=== PATIENT | female | born 1975 | race African-American/Black ===

== ENCOUNTER 2017-09-22 14:46 | Emergency (ER) | payer MEDICARE, MEDICAID ==
[~2017-09-22] VITALS: Ht 170.2 cm; Wt 102.0 kg
[2017-09-22] MEDS ORDERED: SODIUM CHLORIDE 0.9% 1000ML BAG (SEPSIS BOLUS) IV ONE (15:30)
[2017-09-22 15:55] LABS: BASOPHILS % 0.3 % (0.0-2.0); CHLORIDE 105 mEq/L (98-107); EOSINOPHILS % 1.6 % (0.0-5.0); HEMATOCRIT. 33.3 % (36.0-48.0); LYMPHOCYTES % 16.7 % (20.0-50.0); MEAN CORPUSCULAR HEMOGLOBIN 28.8 pg (28.0-32.0); MEAN CORPUSCULAR VOLUME 87.2 fL (81.0-99.0); MEAN PLATELET VOLUME 7.7 fl (7.4-10.4); MONOCYTES % 5.4 % (2.0-8.0); PLATELET 276 x1000/uL (130-400); RED BLOOD CELL COUNT 3.82 mill/uL (4.2-5.4); RED CELL DISTRIBUTION WIDTH 15.2 % (11.6-14.6)
[2017-09-22] MEDS ORDERED: SODIUM CHLORIDE 0.9% 1,000 ML IV ONE (16:00)
[2017-09-22 16:05] LABS: CARBON DIOXIDE 30 mEq/L (21-32)
[2017-09-22] MEDS ORDERED: POTASSIUM CHLORIDE 20MEQ TABLET SR PO ONE (18:00)
[2017-09-22 20:41] LABS: CLARITY URINE TURBID (CLEAR); COLOR URINE DARK YELLOW (YELLOW); KETONES URINE TRACE (NEGATIVE); LEUKOCYTE ESTERASE URINE 3+ (NEGATIVE); NITRITE URINE NEGATIVE (NEGATIVE); OCCULT BLOOD URINE 2+ (NEGATIVE); PH URINE 5.5 (4.5-8.0); PROTEIN URINE 2+ (NEGATIVE); SPECIFIC GRAVITY URINE 1.033 (1.005-1.030)
[2017-09-22 21:22] VITALS: BP 99/64
== END 2017-09-23 03:12 | disposition home or self-care (01) ==
LOC: ER 15:24
DX: T85.898A Other specified complication of other internal prosthetic devices, implants and grafts, initial encounter (principal); E87.6 Hypokalemia; J45.909 Unspecified asthma, uncomplicated; Y83.8 Other surgical procedures as the cause of abnormal reaction of the patient, or of later complication, without mention of misadventure at the time of the procedure; Y92.018 Other place in single-family (private) house as the place of occurrence of the external cause
CPT/HCPCS: 36415; 74176; 80053; 81001; 81025; 83605; 85025; 87040; 87086; 96360; 96361; 99285; J7030

== ENCOUNTER 2017-09-24 11:14 | Emergency (ER) | payer MEDICARE, MEDICAID ==
[~2017-09-24] VITALS: Ht 182.9 cm; Wt 130.0 kg
[2017-09-24 12:08] LABS: BASOPHILS % 0.2 % (0.0-2.0); EOSINOPHILS % 2.3 % (0.0-5.0); HEMATOCRIT. 33.5 % (36.0-48.0); HEMOGLOBIN. 10.9 g/dL (12.0-16.0); LYMPHOCYTES % 17.5 % (20.0-50.0); MEAN CORPUSCULAR HEMOGLOBIN 28.5 pg (28.0-32.0); MEAN CORPUSCULAR VOLUME 87.3 fL (81.0-99.0); MEAN PLATELET VOLUME 7.8 fl (7.4-10.4); MONOCYTES % 5.4 % (2.0-8.0); NEUTROPHILS % 74.6 % (40.0-76.0); PLATELET 300 x1000/uL (130-400); RED BLOOD CELL COUNT 3.84 mill/uL (4.2-5.4); RED CELL DISTRIBUTION WIDTH 14.9 % (11.6-14.6)
[2017-09-24 12:10] LABS: CARBON DIOXIDE 32 mEq/L (21-32); CHLORIDE 103 mEq/L (98-107)
[2017-09-24 12:19] LABS: INR 1.1; PROTHROMBIN TIME 11.2 sec (9.4-11.6)
[2017-09-24] MEDS ORDERED: POTASSIUM CHLORIDE 20MEQ TABLET SR PO ONE (13:15)
[2017-09-24 17:55] VITALS: BP 112/66
[2017-09-24] MEDS ORDERED: ACETAMINOPHEN 325MG TABLET PO ONE (18:00)
== END 2017-09-24 18:10 | disposition home or self-care (01) ==
LOC: ER 11:32
DX: T81.31XA Disruption of external operation (surgical) wound, not elsewhere classified, initial encounter (principal); J45.909 Unspecified asthma, uncomplicated; Y83.8 Other surgical procedures as the cause of abnormal reaction of the patient, or of later complication, without mention of misadventure at the time of the procedure; Y92.018 Other place in single-family (private) house as the place of occurrence of the external cause
CPT/HCPCS: 36415; 80053; 85025; 85610; 99284

== ENCOUNTER 2018-06-24 20:07 | Emergency (ER) | payer MEDICARE, MEDICAID ==
[~2018-06-24] VITALS: Ht 188 cm; Wt 113.6 kg
[2018-06-24] MEDS ORDERED: IBUPROFEN 800MG TABLET PO ONE (22:30)
[2018-06-24 22:39] VITALS: BP 142/102
== END 2018-06-24 23:20 | disposition home or self-care (01) ==
LOC: ER 20:07
DX: S05.11XA Contusion of eyeball and orbital tissues, right eye, initial encounter (principal); J45.909 Unspecified asthma, uncomplicated; Y08.89XA Assault by other specified means, initial encounter; Y93.89 Activity, other specified; Y92.89 Other specified places as the place of occurrence of the external cause; Y99.8 Other external cause status
CPT/HCPCS: 99283

== ENCOUNTER 2018-07-24 23:00 | Emergency (ER) | payer MEDICARE, MEDICAID ==
[~2018-07-24] VITALS: Ht 180.3 cm; Wt 143.0 kg
[2018-07-24] MEDS ORDERED: ALBUTEROL (0.083%) 2.5MG/3ML NEB HHN STA (23:25)
[2018-07-24] MEDS ORDERED: IPRATROPIUM BROMIDE (0.02%) 0.5MG/2.5ML NEB HHN STA (23:25)
[2018-07-24] MEDS ORDERED: PREDNISONE 20MG TABLET PO STA (23:25)
[2018-07-25 03:40] VITALS: BP 143/88
== END 2018-07-25 03:40 | disposition home or self-care (01) ==
LOC: ER 23:00
DX: J45.901 Unspecified asthma with (acute) exacerbation (principal)
CPT/HCPCS: 81025; 94640; 99283; J7512; J7611

== ENCOUNTER 2018-08-04 21:47 | Emergency (ER) | payer MEDICARE, MEDICAID ==
[~2018-08-04] VITALS: Ht 190.5 cm; Wt 136.0 kg
[2018-08-05] MEDS ORDERED: IPRATROPIUM BROMIDE (0.02%) 0.5MG/2.5ML NEB HHN STA (02:08)
[2018-08-05] MEDS ORDERED: ALBUTEROL (0.083%) 2.5MG/3ML NEB HHN STA (02:08)
[2018-08-05] MEDS ORDERED: PREDNISONE 20MG TABLET PO STA (04:06)
[2018-08-05 04:50] VITALS: BP 138/78
== END 2018-08-05 05:00 | disposition home or self-care (01) ==
LOC: ER 21:47
DX: J45.901 Unspecified asthma with (acute) exacerbation (principal)
CPT/HCPCS: 99283; J7512; J7611

== ENCOUNTER 2018-09-23 00:17 | Emergency (ER) | payer MEDICARE, MEDICAID ==
[~2018-09-23] VITALS: Ht 190.5 cm; Wt 136.0 kg
[2018-09-23] MEDS ORDERED: KETOROLAC 60MG/2ML VIAL IM ONE (04:15)
[2018-09-23] MEDS ORDERED: DIAZEPAM 5 MG TABLET PO ONE (04:15)
[2018-09-23 05:00] VITALS: BP 129/75
== END 2018-09-23 05:25 | disposition home or self-care (01) ==
LOC: ER 00:17
DX: M54.5 Low back pain (principal)
CPT/HCPCS: 96372; 99283; J1885

== ENCOUNTER 2019-01-19 18:46 | Inpatient (IN) | payer MEDICARE, MEDICAID ==
[~2019-01-19] VITALS: Ht 188 cm; Wt 157.6 kg
[2019-01-19] MEDS ORDERED: ASPIRIN 81MG TABLET PO ONE (21:00)
[2019-01-19] MEDS ORDERED: NITROGLYCERIN 0.4MG TABLET SL SL PRN (21:00)
[2019-01-19 21:21] LABS: BASOPHILS % 0.4 % (0.0-2.0); EOSINOPHILS % 3.7 % (0.0-5.0); HEMATOCRIT. 39.7 % (36.0-48.0); HEMOGLOBIN. 13.1 g/dL (12.0-16.0); LYMPHOCYTES % 38.1 % (20.0-50.0); MEAN CORPUSCULAR HEMOGLOBIN 28.7 pg (28.0-32.0); MEAN CORPUSCULAR VOLUME 86.6 fL (81.0-99.0); MEAN PLATELET VOLUME 7.8 fl (7.4-10.4); MONOCYTES % 7.5 % (2.0-8.0); NEUTROPHILS % 50.3 % (40.0-76.0); PLATELET 258 x1000/uL (130-400); RED BLOOD CELL COUNT 4.58 mill/uL (4.2-5.4); RED CELL DISTRIBUTION WIDTH 16.5 % (11.6-14.6)
[2019-01-19 21:25] LABS: CHLORIDE 107 mEq/L (98-107)
[2019-01-19 21:29] LABS: D-DIMER 0.25 mg/L FEU (<0.50); PARTIAL THROMBOPLASTIN TIME 26.5 sec (23.4-31.0); PROTHROMBIN TIME 9.9 sec (9.6-11.0)
[2019-01-19 21:40] LABS: HCG SCREEN NEGATIVE
[2019-01-20] MEDS ORDERED: NA PHOS,M-B/NA PHOS,DI-BA ENEMA 118ML PR PRN (06:30)
[2019-01-20] MEDS ORDERED: HYDROCODONE/ACETAMINOPHEN 10/325MG TABLET PO PRN (06:30)
[2019-01-20] MEDS ORDERED: GUAIFENESIN 200MG/10ML SUGAR FREE UDC PO PRN (06:30)
[2019-01-20] MEDS ORDERED: ONDANSETRON HCL 4MG/2ML INJ IV PRN (06:30)
[2019-01-20] MEDS ORDERED: DOCUSATE SODIUM 100MG CAPSULE PO PRN (06:30)
[2019-01-20] MEDS ORDERED: LORAZEPAM 2MG/ML CPJ IV PRN (06:30)
[2019-01-20] MEDS ORDERED: CLONIDINE 0.1MG TABLET PO PRN (06:30)
[2019-01-20] MEDS ORDERED: IPRATROPIUM/ALBUTEROL 0.5-3(2.5)MG/3ML NEB INH PRN (06:30)
[2019-01-20] MEDS ORDERED: MAGNESIUM/ALUMINUM HYDROXIDE/SIMETHICONE 30ML UDC PO PRN (06:30)
[2019-01-20] MEDS ORDERED: ACETAMINOPHEN 325MG TABLET PO PRN (06:30)
[2019-01-20] MEDS ORDERED: HYDROMORPHONE HCL/PF 2MG/ML CPJ IV PRN (06:30)
[2019-01-20] MEDS ORDERED: HYDRALAZINE 20MG/ML VIAL IV PRN (06:30)
[2019-01-20] MEDS ORDERED: DIPHENHYDRAMINE 50MG/ML VIAL IV PRN (06:30)
[2019-01-20 08:00] VITALS: BP 123/84
[2019-01-20] MEDS: ASPIRIN 81MG EC TABLET PO SCH (09:41)
[2019-01-20] MEDS: ENOXAPARIN 40MG/0.4ML SYR SUBCUT SCH ×2 (09:41→20:13)
[2019-01-20 12:00] VITALS: BP 124/82
[2019-01-20] MEDS: SODIUM CHLORIDE 0.9% INJ 3ML FLUSH IVF SCH ×2 (12:56→20:13)
[2019-01-20 16:00] VITALS: BP 139/96
[2019-01-20 17:45] LABS: CREATINE KINASE 85 IU/L (26-192)
[2019-01-20 17:46] LABS: CREATINE KINASE MB FRACTION < 1.0 ng/mL (0.5-3.6)
[2019-01-20 20:00] VITALS: BP 120/90
[2019-01-21] VITALS (8 sets, daily range): BP systolic 116–141; BP diastolic 78–98
[2019-01-21 00:58] LABS: CREATINE KINASE 80 IU/L (26-192)
[2019-01-21 01:00] LABS: CREATINE KINASE MB FRACTION < 1.0 ng/mL (0.5-3.6)
[2019-01-21] MEDS: SODIUM CHLORIDE 0.9% INJ 3ML FLUSH IVF SCH ×3 (05:24→20:24)
[2019-01-21 06:22] LABS: BASOPHILS % 0.4 % (0.0-2.0); EOSINOPHILS % 3.8 % (0.0-5.0); HEMATOCRIT. 39.7 % (36.0-48.0); LYMPHOCYTES % 40.4 % (20.0-50.0); MEAN CORPUSCULAR HEMOGLOBIN 28.3 pg (28.0-32.0); MEAN CORPUSCULAR VOLUME 86.3 fL (81.0-99.0); MEAN PLATELET VOLUME 7.8 fl (7.4-10.4); MONOCYTES % 5.8 % (2.0-8.0); NEUTROPHILS % 49.6 % (40.0-76.0); PLATELET 236 x1000/uL (130-400); RED CELL DISTRIBUTION WIDTH 16.4 % (11.6-14.6)
[2019-01-21 06:27] LABS: CHLORIDE 103 mEq/L (98-107)
[2019-01-21] MEDS: ENOXAPARIN 40MG/0.4ML SYR SUBCUT SCH ×2 (07:42→20:24)
[2019-01-21] MEDS: ASPIRIN 81MG EC TABLET PO SCH (07:42)
[2019-01-21] MEDS ORDERED: IOHEXOL-350 100 ML BOTTLE ONE (13:05)
[2019-01-22 03:50] VITALS: BP 129/71
[2019-01-22] MEDS: SODIUM CHLORIDE 0.9% INJ 3ML FLUSH IVF SCH (06:23)
[2019-01-22 08:00] VITALS: BP 147/98
[2019-01-22] MEDS: ENOXAPARIN 40MG/0.4ML SYR SUBCUT SCH (08:55)
[2019-01-22] MEDS: ASPIRIN 81MG EC TABLET PO SCH (08:55)
[2019-01-22 10:45] VITALS: BP 147/98
== END 2019-01-22 13:00 | disposition home or self-care (01) | DRG 206 ==
LOC: ER 18:46 → 5WST 01-20 00:42 → ENRESERV 01-20 06:08
PROVIDERS: ADMIT Internal Medicine; ATTEND Internal Medicine
DX: M94.0 Chondrocostal junction syndrome [Tietze] (principal); Z68.41 Body mass index [BMI] 40.0-44.9, adult; K21.9 Gastro-esophageal reflux disease without esophagitis; J45.909 Unspecified asthma, uncomplicated; E66.01 Morbid (severe) obesity due to excess calories; I10 Essential (primary) hypertension; I71.2 Thoracic aortic aneurysm, without rupture
CPT/HCPCS: 36415; 71045; 71275; 80061; 81025; 82550; 82553; 83036; 83880; 84439; 84443; 84484; 84703; 85379; 93005; 93306; 93970; 99285; J1650; Q9967

== ENCOUNTER 2019-03-19 14:40 | Emergency (ER) | payer MEDICARE, MEDICAID ==
[~2019-03-19] VITALS: Ht 190.5 cm; Wt 167.0 kg
[2019-03-19 18:07] LABS: BASOPHILS % 0.7 % (0.0-2.0); EOSINOPHILS % 2.5 % (0.0-5.0); HEMOGLOBIN. 13.4 g/dL (12.0-16.0); LYMPHOCYTES % 37.3 % (20.0-50.0); MEAN CORPUSCULAR HEMOGLOBIN 28.8 pg (28.0-32.0); MEAN CORPUSCULAR VOLUME 86.2 fL (81.0-99.0); MEAN PLATELET VOLUME 7.7 fl (7.4-10.4); MONOCYTES % 6.5 % (2.0-8.0); PLATELET 246 x1000/uL (130-400); RED BLOOD CELL COUNT 4.64 mill/uL (4.2-5.4); RED CELL DISTRIBUTION WIDTH 15.2 % (11.6-14.6)
[2019-03-19 18:09] LABS: CHLORIDE 104 mEq/L (98-107)
[2019-03-19 18:11] LABS: INR 0.9; PARTIAL THROMBOPLASTIN TIME 27.8 sec (23.4-31.0); PROTHROMBIN TIME 9.7 sec (9.6-11.0)
[2019-03-19 18:15] LABS: HCG SCREEN NEGATIVE
[2019-03-19 18:59] LABS: CLARITY URINE CLEAR (CLEAR); COLOR URINE YELLOW (YELLOW); KETONES URINE NEGATIVE (NEGATIVE); LEUKOCYTE ESTERASE URINE NEGATIVE (NEGATIVE); NITRITE URINE NEGATIVE (NEGATIVE); OCCULT BLOOD URINE 1+ (NEGATIVE); PH URINE 5.5 (4.5-8.0); PROTEIN URINE NEGATIVE (NEGATIVE); SPECIFIC GRAVITY URINE 1.023 (1.005-1.030); UROBILINOGEN URINE 0.2 E.U./dL (0.2-1.0)
[2019-03-19 22:30] VITALS: BP 139/89
== END 2019-03-19 22:38 | disposition home or self-care (01) ==
LOC: ER 14:40
DX: R07.2 Precordial pain (principal); J45.909 Unspecified asthma, uncomplicated; I10 Essential (primary) hypertension; Z98.890 Other specified postprocedural states
CPT/HCPCS: 36415; 71045; 81025; 83880; 84484; 84703; 93005; 99284

== ENCOUNTER 2019-04-12 22:22 | Emergency (ER) | payer MEDICARE, MEDICAID ==
[~2019-04-12] VITALS: Ht 190.5 cm; Wt 140.0 kg
[2019-04-12] MEDS ORDERED: ONDANSETRON HCL 4MG/2ML INJ IV STA (23:14)
[2019-04-12] MEDS ORDERED: MORPHINE SULFATE 4 MG/ML CPJ (NOT FOR IM USE) IV STA (23:14)
[2019-04-12 23:31] LABS: BASOPHILS % 0.5 % (0.0-2.0); EOSINOPHILS % 2.5 % (0.0-5.0); HEMATOCRIT. 38.2 % (36.0-48.0); HEMOGLOBIN. 12.8 g/dL (12.0-16.0); MEAN CORPUSCULAR HEMOGLOBIN 28.5 pg (28.0-32.0); MEAN CORPUSCULAR VOLUME 85.2 fL (81.0-99.0); MEAN PLATELET VOLUME 7.6 fl (7.4-10.4); MONOCYTES % 7.2 % (2.0-8.0); NEUTROPHILS % 49.8 % (40.0-76.0); PLATELET 245 x1000/uL (130-400); RED BLOOD CELL COUNT 4.48 mill/uL (4.2-5.4); RED CELL DISTRIBUTION WIDTH 15.2 % (11.6-14.6)
[2019-04-12 23:42] LABS: CHLORIDE 106 mEq/L (98-107)
[2019-04-13 05:16] VITALS: BP 135/97
== END 2019-04-13 05:46 | disposition home or self-care (01) ==
LOC: ER 22:22
DX: R07.89 Other chest pain (principal); I10 Essential (primary) hypertension; J45.909 Unspecified asthma, uncomplicated
CPT/HCPCS: 36415; 71045; 80053; 84484; 85025; 93005; 96374; 96375; 99284; J2270; J2405

== ENCOUNTER 2019-12-02 17:04 | Emergency (ER) | payer MEDICARE, MEDICAID ==
[~2019-12-02] VITALS: Ht 188 cm; Wt 111.0 kg
[2019-12-02 17:12] VITALS: BP 115/86
== END 2019-12-02 22:44 | disposition left against medical advice (07) ==
LOC: ER 17:04
DX: Z53.21 Procedure and treatment not carried out due to patient leaving prior to being seen by health care provider (principal)
CPT/HCPCS: 93005

== ENCOUNTER 2020-04-04 20:07 | Emergency (ER) | payer MEDICARE, MEDICAID ==
[~2020-04-04] VITALS: Ht 190.5 cm; Wt 141.0 kg
[2020-04-05] MEDS ORDERED: MAGNESIUM/ALUMINUM HYDROXIDE/SIMETHICONE 30ML UDC PO SCH (02:35)
[2020-04-05] MEDS ORDERED: METOCLOPRAMIDE HCL 10MG/2ML VIAL IV SCH (02:35)
[2020-04-05 02:59] LABS: BASOPHILS % 0.3 % (0.0-2.0); EOSINOPHILS % 0.7 % (0.0-5.0); HEMATOCRIT. 41.1 % (36.0-48.0); HEMOGLOBIN. 13.6 g/dL (12.0-16.0); LYMPHOCYTES % 32.7 % (20.0-50.0); MEAN CORPUSCULAR HEMOGLOBIN 28.8 pg (28.0-32.0); MEAN PLATELET VOLUME 8.7 fl (7.4-10.4); MONOCYTES % 6.5 % (2.0-8.0); NEUTROPHILS % 59.8 % (40.0-76.0); PLATELET 274 x1000/uL (130-400); RED BLOOD CELL COUNT 4.73 mill/uL (4.2-5.4)
[2020-04-05 03:02] LABS: CHLORIDE 105 mEq/L (98-107)
[2020-04-05 03:16] LABS: PROTHROMBIN TIME 10.6 sec (9.6-11.0)
[2020-04-05] MEDS ORDERED: MAGNESIUM CITRATE 300ML SOLUTION PO SCH (05:00)
[2020-04-05] MEDS ORDERED: BISACODYL 10MG SUPP PR SCH (05:00)
[2020-04-05 05:53] VITALS: BP 170/71
[2020-04-05 06:49] LABS: CLARITY URINE CLEAR (CLEAR); COLOR URINE YELLOW (YELLOW); KETONES URINE NEGATIVE (NEGATIVE); LEUKOCYTE ESTERASE URINE 1+ (NEGATIVE); NITRITE URINE NEGATIVE (NEGATIVE); OCCULT BLOOD URINE 1+ (NEGATIVE); PROTEIN URINE NEGATIVE (NEGATIVE); SPECIFIC GRAVITY URINE 1.021 (1.005-1.030); UROBILINOGEN URINE 0.2 E.U./dL (0.2-1.0)
== END 2020-04-05 05:52 | disposition home or self-care (01) ==
LOC: ER 20:14
DX: K59.00 Constipation, unspecified (principal); R10.9 Unspecified abdominal pain; J45.909 Unspecified asthma, uncomplicated; E11.9 Type 2 diabetes mellitus without complications; I10 Essential (primary) hypertension
CPT/HCPCS: 36415; 71045; 74176; 80053; 81003; 83605; 83690; 85025; 85610; 93005; 96374; 99285; J2765